=== PATIENT | female | born 1975 | race Caucasian/White ===

== ENCOUNTER 2016-09-21 18:07 | Emergency (ER) | payer OTHER ==
[~2016-09-21] VITALS: Ht 162.6 cm; Wt 120.2 kg
[~2016-09-21 18:07] MED LIST: AMOXICILLIN500 M3 PO; AUGMENTIN 875 M1 TAB PO; CELEXA10 MG PO; CLEOCIN HCL300 M1 PO; CLEOCIN HCL300 MG PO; CLINDAMYCIN HC300 M1 PO; EXCEDRIN EXTRA1 TAB PO; FLEXERIL10 MG PO; FLONASE120 SPRAY/ NASB; GOOD SENSE IBU200 MG PO; IBUPROFEN800 M1 PO; MEDROL 2 MG TABL2 MG PO; MEDROL DOSEPAK1 PAC PO; MOBIC 15MG15 MG PO; NORCO 325 MG-51 TAB PO; NORCO 5-325 TA1 EACH PO; OXYCODONE5 M1 PO; PERCOCET 325 MG1 TA2 PO; PERCOCET 5-3251 EACH PO; ZOFRAN ODT4 MG PO
--- NOTE | 2016-09-21 18:45 | ED GI/GU/ABDOMINAL COMPLAINT ---
History of Present Illness General Chief Complaint: General Adult Stated Complaint: LOW BACK PAIN,DIARRHEA Source: patient, old records Exam Limitations: no limitations Vital Signs & Intake/Output Vital Signs & Intake/Output Vital Signs Date Time Temp Pulse Resp B/P B/P Pulse O2 O2 Flow FiO2 Mean Ox Delivery Rate 09/21 2203 97.4 81 18 129/74 98 Room Air 09/21 1819 97.2 104 18 145/98 98 Room Air ED Intake and Output 09/22 0000 09/21 1200 Intake Total 1000 Output Total Balance 1000 Intake, IV 1000 Patient 265 lb Weight Weight Reported by Patient Measurement Method Allergies Coded Allergies: Penicillins (Severe, HIVES 11/03/15) promethazine (From Phenergan) (Intermediate, ANXIOUS 11/03/15) Reconcile Medications Clonazepam (Unknown Strength) TABLET (Unknown Dose) PO PRN UNKNOWN (Reported) Dextroamphetamine/Amphetamine (Adderall 15 MG Tablet) (Unknown Strength) TABLET (Unknown Dose) UNKNOWN (Reported) Dicyclomine Hydrochloride (Bentyl) 10 MG CAPSULE 1 CAP PO TID PRN abdominal pain Folic Acid 1 MG TABLET 1 TAB PO DAILY SUPPLEMENT (Reported) Hydromorphone HCl (Dilaudid) 2 MG TABLET 1 TAB PO Q6H PRN pain Melatonin (Unknown Strength) TABLET (Unknown Dose) PO QPM SLEEP (Reported) Ondansetron (Zofran Odt) 4 MG TAB.RAPDIS 1 TAB SL TID PRN nausea Topiramate (Unknown Strength) TABLET (Unknown Dose) UNKNOWN (Reported) Venlafaxine HCl (Venlafaxine HCl ER) 150 MG CAP.ER.24H 1 CAP PO DAILY MENTAL HEALTH (Reported) Zolpidem Tartrate 10 MG TABLET 1 TAB PO QPM SLEEP (Reported) Triage Note: PRESENTS TO ED COMPLAINING OF BILATERAL LOWER BACK PAIN THAT STARTED YESTERDAY. ALSO REPORTS DIARRHEA, DENIED UROLOGICAL SYMPTOMS. Triage Nurses Notes Reviewed? yes ? n Is pt currently ? No HPI: Patient is a 34 year old female presents with bilateral lumbar/flank pain, diarrhea and chills. 20 episodes since yesterday. The last episode of diarrhea had some blood present. Pain is severe. Patient took immodium today with no significant improvement. Back pain feels like previous kidney stone pain, but has never had on bilateral sides. Patient denies fevers, vomiting, sick contacts, recent antibiotic use, urinary symptoms. (HEILBRUNN PA,SE) Past History Travel History Traveled to [place] past 21 day No Medical History Any Pertinent Medical History? 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 No (SE HALL) Review of Systems Review of Systems Constitutional: Reports: chills. Denies: fever. EENTM: Reports: no symptoms. Respiratory: Reports: no symptoms. Cardiovascular: Reports: no symptoms. GI: Reports: see HPI, abdominal pain, diarrhea, nausea. Denies: vomiting. Genitourinary: Reports: no symptoms. Musculoskeletal: Reports: back pain. Skin: Reports: no symptoms. Neurological/Psychological: Reports: no symptoms. Hematologic/Endocrine: Reports: no symptoms. Immunologic/Allergic: Reports: no symptoms. (SE HALL) Physical Exam Physical Exam General Appearance: alert, awake, anxious Head: atraumatic, normal appearance Eyes: Bilateral: normal appearance, PERRL, EOMI. Ears, Nose, Throat, Mouth: hearing grossly normal, dry mucous membranes Neck: normal inspection, supple, full range of motion Respiratory: normal breath sounds, chest non-tender, no respiratory distress, lungs clear Cardiovascular: tachycardia (regular rhythm, no murmur) Gastrointestinal: normal bowel sounds, soft, mild diffuse tenderness Back: normal inspection, normal range of motion, no cva tenderness Extremities: normal range of motion Neurologic/Psych: no motor/sensory deficits, awake, alert, oriented x 3, normal gait, normal mood/affect Skin: intact, normal color, warm/dry Core Measures ACS in differential dx? No Severe Sepsis Present: No Septic Shock Present: No (SE HALL) Progress Differential Diagnosis: diverticulitis, gastritis, hepatitis, hernia, ischemic bowel, kidney stone, ovarian cyst, ovarian torsion, pancreatitis, PID/cervicitis , peptic ulcer, perforated viscous, SBO, choledocholithiasis, cholangitis Plan of Care: Orders Procedure Date/time Status Add-on Test (ER Only) 09/21 1952 Active HEPATITIS PANEL 09/21 1904 Active URINE 09/21 1845 Complete URINALYSIS 09/21 1845 Complete LIPASE 09/21 1845 Active COMPREHENSIVE METABOLIC PANEL 09/21 1845 Active CBC WITHOUT DIFFERENTIAL 09/21 1845 Complete Current Medications Sig/Dillan Start time Last Medication Dose Stop Time Status Admin Morphine Sulfate 4 MG ONCE ONE 09/21 1899 CAN (Morphine) 09/21 1900 Laboratory Tests 09/21/161904: Anion Gap 17 H, Estimated GFR > 60, BUN/Creatinine Ratio 10.0, Glucose 99, Calcium 8.7, Total Bilirubin 0.8, AST 217 H, ALT 183 H, Alkaline Phosphatase 213 H, Total Protein 7.5, Albumin 4.0, Globulin 3.5, Albumin/Globulin Ratio 1.1 , Lipase 490 H, CBC w Diff NO MAN DIFF REQ, RBC 5.28, MCV 53.8 L, MCH 15.8 L, RDW 22.7 H, MPV 8.7, Gran % 60.9, Lymphocytes % 27.0, Monocytes % 7.6, Eosinophils % 4.4, Basophils % 0.1, Absolute Granulocytes 4.2, Absolute Lymphocytes 1.9, Absolute Monocytes 0.5, Absolute Eosinophils 0.3, Absolute Basophils 0, PUBS MCHC 29.4 L, Hepatitis A IgM Ab Pending, Hep Bs Antigen Pending, Hep B Core IgM Ab Conf Pending, Hepatitis C Antibody Pending, Urinalysis MOD H, Urine Color CHIP, Urine Clarity CLEAR, Urine pH 6.0, Ur Specific [place] 1.025, Urine Protein 30 H, Urine Ketones TRACE H, Urine Nitrite NEG, Urine Bilirubin NEG@ICTO, Urine Urobilinogen 4.0 H, Ur Leukocyte Esterase TRACE H, Ur Microscopic SEDIMENT EXAMINED, Urine WBC 3-5 H, Ur Epithelial Cells MANY H, Urine Bacteria MOD H, Urine Mucus FEW, Urine Hemoglobin NEG, Urine Glucose NEG, Urine Test NEGATIVE Microbiology 09/21 1845 STOOL: Clostridium difficile Toxin A & B - CAN Cancelled: SPECIMEN NEVER RECEIVED. PATIENT DEPARTED ERH 09/21 1845 STOOL: Stool Culture - CAN Cancelled: SPECIMEN NEVER RECEIVED. PATIENT DEPARTED ERH 2000: No improvement after Toradol. Dilaudid ordered. 09/21/2016 9:40:10 PM: Results of labs and imaging discussed with patient. No episodes of diarrhea while in the emergency department. Patient nontoxic appearing, appears stable for close outpatient follow-up with her primary care doctor. (SE HALL) Diagnostic Imaging: Viewed by Me: CT Scan. Discussed w/RAD: CT Scan. Radiology Impression: PATIENT: SHAKIRA ANDINO PRESENT AGE: 40 PATIENT ACCOUNT NO: [id number] : 77 LOCATION: [facility] ([place]) ORDERING PHYSICIAN: SE PRO SERVICE DATE: 09/21/16 EXAM TYPE: CAT - CT ABD & PELVIS W/O IV CONTRAS EXAMINATION: CT ABDOMEN AND PELVIS WITHOUT CONTRAST CLINICAL INFORMATION: Abdominal pain and flank pain and dysuria COMPARISON: Previous dated 08/12/2013. The other CTs are unavailable at this time. TECHNIQUE: Multidetector volumetric imaging was performed from the superior aspect of the liver through the pubic symphysis. Sagittal and coronal reformatted images were obtained on the technologist's workstation. FINDINGS: Lung bases are grossly clear. Upper abdomen Liver is within normal limits. Mild splenic prominence. Similar to previous. The pancreas is within normal limits. Region of the adrenal glands is unremarkable. Kidneys appear nonhydronephrotic. There is some shotty nodes here in the mesentery and periaortic region. No bulky adenopathy. The bowel pattern appears nonobstructing. Status post cholecystectomy.. The adrenal glands our within normal limits. In the pelvis the appendix is within normal limits. No free fluid in the deep pelvis. IMPRESSION: No acute finding. No evidence of ureteral stone or obstruction. The bowel pattern is nonobstructing. No suspicious fluid collection. DICTATED BY: KATHERINE ZAMORA MD DATE/TIME DICTATED:09/21/162109 EDITOR SOUND:NICKIE DATE/ TIME TRANSCRIBED:09/21/162109 CONFIDENTIAL, DO NOT COPY WITHOUT APPROPRIATE AUTHORIZATION. <Electronically signed in Other Vendor System> SIGNED BY: KATHERINE ZAMORA MD 09/21/162119 Initial ED EKG: none (SE HALL) Departure Departure Time of Disposition: 2137 Disposition: HOME OR SELF CARE Condition: Stable Clinical Impression Primary Impression: Diarrhea Secondary Impressions: Chronic anemia, Elevated LFTs Referrals: UNKNOWN (PCP/Family) Additional Instructions: Follow-up with your primary care doctor within 1 week for further evaluation. Call in the morning for appointment. Clear liquid diet for the next 12-24 hours then slowly advance her diet as tolerated. Start with bananas, rice, applesauce , toast to aid with diarrhea. Return to the emergency department if fevers, unable to say hydrated, or worsening of symptoms. Also you are being provided with a prescription for stool culture and C. difficile testing. If you have diarrhea at home then you should collect the sample and bring it to the outpatient lab for testing. Departure Forms: Customer Survey General Discharge Information Prescriptions: Current Visit Scripts Dicyclomine Hydrochloride (Bentyl) 1 CAP PO TID PRN abdominal pain #12 CAP Hydromorphone HCl (Dilaudid) 1 TAB PO Q6H PRN pain #10 TAB Ondansetron (Zofran Odt) 1 TAB SL TID PRN nausea #10 TAB (SE HALL) PA/[employer] Co-Sign Statement Statement: ED Attending supervision documentation- [] I saw and evaluated the patient. I have also reviewed all the pertinent lab results and diagnostic results. I agree with the findings and the plan of care as documented in the PA's/FIELD [employer]ILL[employer]'s documentation. [X] I have reviewed the ED Record and agree with the PA's/FIELD [employer]'s documentation. [] Additions or exceptions (if any) to the PAs/FIELD ARTILL[employer]'s note and plan are summarized below: [] (DEISI REESE,ILYA Gonsalez)
[2016-09-21 19:23] LABS: ABSOLUTE BASOPHIL COUNT 0 /CUMM (0.0-0.2); ABSOLUTE EOSINOPHIL COUNT 0.3 /CUMM (0.0-0.7); ABSOLUTE GRANULOCYTE CT 4.2 /CUMM (1.4-6.5); ABSOLUTE LYMPH COUNT 1.9 /CUMM (1.2-3.4); ABSOLUTE MONOCYTE COUNT 0.5 /CUMM (0.10-0.60); BASOPHIL % 0.1 % (0.0-2.0); EOSINOPHIL % 4.4 % (0-5); GRANULOCYTE % 60.9 % (42.2-75.2); HEMATOCRIT 28.4 % (37-47); MEAN CORPUSCULAR HGB 15.8 PG (27.0-31.0); MEAN CORPUSCULAR HGB CONC 29.4 G/DL (33.0-37.0); MEAN CORPUSCULAR VOLUME 53.8 FL (81.0-99.0); MEAN PLATELET VOLUME 8.7 FL (7.4-10.4); PLATELET COUNT 315 /CUMM (130-400); RBC DISTRIBUTION WIDTH 22.7 % (11.5-14.5); RED BLOOD CELL CT 5.28 /CUMM (4.20-5.40); WHITE BLOOD CELL COUNT 6.9 /CUMM (4.8-10.8)
[2016-09-21] MEDS ORDERED: VENLAFAXINE HC150 MG PO (19:39)
[2016-09-21] MEDS ORDERED: CLONAZEPAM0.5 M2 PO (19:39)
[2016-09-21] MEDS ORDERED: FOLIC ACID1 M1 PO (19:39)
[2016-09-21] MEDS ORDERED: ZOLPIDEM TARTRA10 M1 PO (19:40)
[2016-09-21] MEDS ORDERED: ADDERALL 15 MG15 MG (19:40)
[2016-09-21] MEDS ORDERED: TOPIRAMATE100 M2 (19:40)
[2016-09-21] MEDS ORDERED: MELATONIN3 M4 PO (19:41)
--- NOTE | 2016-09-21 21:20 | CT SCAN REPORT ---
EXAMINATION: CT ABDOMEN AND PELVIS WITHOUT CONTRAST CLINICAL INFORMATION: Abdominal pain and flank pain and dysuria COMPARISON: Previous dated 08/12/2013. The other CTs are unavailable at this time. TECHNIQUE: Multidetector volumetric imaging was performed from the superior aspect of the liver through the pubic symphysis. Sagittal and coronal reformatted images were obtained on the technologist's workstation. FINDINGS: Lung bases are grossly clear. Upper abdomen Liver is within normal limits. Mild splenic prominence. Similar to previous. The pancreas is within normal limits. Region of the adrenal glands is unremarkable. Kidneys appear nonhydronephrotic. There is some shotty nodes here in the mesentery and periaortic region. No bulky adenopathy. The bowel pattern appears nonobstructing. Status post cholecystectomy.. The adrenal glands our within normal limits. In the pelvis the appendix is within normal limits. No free fluid in the deep pelvis. IMPRESSION: No acute finding. No evidence of ureteral stone or obstruction. The bowel pattern is nonobstructing. No suspicious fluid collection.
[2016-09-21] MEDS ORDERED: BENTYL10 M1 PO (21:42)
[2016-09-21] MEDS ORDERED: DILAUDID2 M1 PO (21:42)
[2016-09-21] MEDS ORDERED: ZOFRAN ODT4 M1 SL (21:42)
[2016-09-21 22:03] VITALS: BP 129/74
== END 2016-09-21 22:05 ==
LOC: ERH 18:07
PROVIDERS: Physician Assistant
DX: R19.7 Diarrhea, unspecified (principal); D64.9 Anemia, unspecified; R79.89 Other specified abnormal findings of blood chemistry
CPT/HCPCS: 74176; 81001; 81025; 87045; 96374; 96375; J1885; J2405

== ENCOUNTER 2018-01-25 21:33 | Observation (INO) | payer OTHER ==
[~2018-01-25] VITALS: Ht 160 cm; Wt 108.9 kg
[~2018-01-25 21:33] MED LIST changes: +ADDERALL 15 MG15 MG; +BENTYL10 M1 PO; +CLONAZEPAM0.5 M2 PO; +DILAUDID2 M1 PO; +FOLIC ACID1 M1 PO; +MELATONIN3 M4 PO; +TOPIRAMATE100 M2; +VENLAFAXINE HC150 MG PO; +ZOFRAN ODT4 M1 SL; +ZOLPIDEM TARTRA10 M1 PO
--- NOTE | 2018-01-25 21:45 | ED UPPER/LOWER EXTREMITY COMPL ---
See Addendum History of Present Illness General Chief Complaint: Lower Extremity Problems Stated Complaint: X3 DAYS LEG SWELLING Source: patient Exam Limitations: no limitations Vital Signs & Intake/Output Vital Signs & Intake/Output Vital Signs Date Time Temp Pulse Resp B/P B/P Pulse O2 O2 Flow FiO2 Mean Ox Delivery Rate 01/26 0023 97.9 99 20 128/77 99 Room Air 01/25 2334 Room Air 01/25 2139 97.8 109 17 121/87 98 Room Air Allergies Coded Allergies: Penicillins (Severe, HIVES 11/03/15) promethazine (From Phenergan) (Intermediate, ANXIOUS 11/03/15) Reconcile Medications Venlafaxine HCl (Venlafaxine HCl ER) 150 MG CAP.ER.24H 1 CAP PO DAILY MENTAL HEALTH (Reported) Zolpidem Tartrate 10 MG TABLET 1 TAB PO QPM SLEEP (Reported) Triage Note: PT TO ED WITH C/O BILATERAL LOWER EXTREMITY PAIN, SWELLING BEGINNING 3 DAYS AGO. +CRAMPING IN BOTH LEGS, RIGHT WORSE THAN LEFT. DENIES ANY HX OF SWELLING IN LEGS. Triage Nurses Notes Reviewed? yes Onset: Gradual Duration: day(s): Timing: recent history Severity: moderate Pain/Injury Location: Bilateral: Leg. Method of Injury: unknown Modifying Factors: Improves With: rest. Associated Symptoms: swelling : No Patient currently breastfeeds: No HPI: 42 yo woman h/o anemia, menorrhagia, presents with lower extremity swelling. "My legs are really swollen... .they hurt.... " Her symptoms began over the past 3 days. She has no fever, redness, dyspnea. She notes that she continues to have heavy periods, lasting 7 days, with clots. She used to follow with a HOME COORDINATOR, but not recently. He is otherwise well. Past History Travel History Traveled to [place] past 21 day No Medical History Any Pertinent Medical History? 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 No Review of Systems Review of Systems Constitutional: Reports: no symptoms. EENTM: Reports: no symptoms. Respiratory: Reports: no symptoms. Cardiovascular: Reports: no symptoms. Gastrointestinal/Abdominal: Reports: no symptoms. Genitourinary: Reports: no symptoms. Musculoskeletal: Reports: no symptoms. Skin: Reports: no symptoms. Neurological/Psychological: Reports: no symptoms. Hematologic/Endocrine: Reports: no symptoms. Immunological: Reports: no symptoms. All Other Systems: Reviewed and Negative Physical Exam Physical Exam General Appearance: well developed/nourished, mild distress Head: atraumatic Eyes: Bilateral: normal appearance. Ears, Nose, Throat: normal pharynx, normal ENT inspection Neck: normal inspection, supple, full range of motion Cardiovascular/Respiratory: normal breath sounds, normal peripheral pulses, regular rate/rhythm, no respiratory distress Back: normal inspection Comments: RECTAL.... guiac negative. bilateral lower extremities.... symmetric lower extremity swelling, no sign of infection, 2+ distal pulses. negative naomie's sign bilaterally. Progress Differential Diagnosis: dependent edema vs other. Plan of Care: Orders Procedure Date/time Status Regular Diet 01/26 B Active Lab Add-on Test 01/26 033 Active Lab Add-on Test 01/26 033 Active Pathway - chart 01/26 0307 Active House Staff 01/26 0307 Active Code Status 01/26 0307 Active Patient Data 01/26 0241 Active US-EXT BILAT VENOUS DOPPLER 01/26 0239 Active Saline Lock 01/[address] in observation 01/26 0237 Active Misc Message 01/26 0237 Active ED Holding Orders 01/26 0237 Active Vital Signs 01/26 0237 Active EKG 01/26 0237 Active Code Status 01/26 0237 Complete VTE Mechanical Prophylaxis 01/26 UNK Active Hemoccult 01/26 UNK Active TYPE & SCREEN (NOT X-MATCH) 01/25 2312 Active LEUKOCYTE POOR (PACKED CELLS) 01/26 2312 Active TOTAL IRON BINDING CAPACITY 01/26 2156 Active RETICULOCYTE COUNT 01/25 215 Active FERRITIN 01/25 215 Active SERUM IRON 01/26 2156 Active B-TYPE NATRIURETIC PEP (BNP) 01/26 2156 Active COMPREHENSIVE METABOLIC PANEL 01/25 2145 Active CBC WITHOUT DIFFERENTIAL 01/25 2145 Active Current Medications Sig/Dillan Start time Last Medication Dose Stop Time Status Admin Zolpidem Tartrate 10 MG QPM 01/26 2100 UNVr (Ambien) Venlafaxine HCl 150 MG DAILY 01/26 09 UNVr (Effexor) Gabapentin 300 MG ONCE ONE 01/26 345 UNVr (Neurontin) 01/26 346 Tramadol HCl 50 MG ONCE ONE 01/26 345 UNVr (Ultram) 01/26 346 Acetaminophen 650 MG Q6P PRN 01/26 315 AC (Tylenol) Oxycodone/ 1 TAB Q6P PRN 01/26 315 AC Acetaminophen (Percocet) Laboratory Tests 01/25/182155: Anion Gap 10, Estimated GFR > 60, BUN/Creatinine Ratio 11.4, Glucose 105 H, Calcium 9.1, Iron Pending, TIBC Pending, Ferritin Pending, Total Bilirubin 0.2, AST 26, ALT 30, Alkaline Phosphatase 104, [id number] Pept Pending, Total Protein 6.8, Albumin 3.7, Globulin 3.1, Albumin/Globulin Ratio 1.2, CBC w Diff NO MAN DIFF REQ, RBC 4.23, MCV 54.2 L, MCH 15.8 L, MCHC 29.0 L, RDW 21.8 H, MPV 8.3, Gran % 60.5, Lymphocytes % 29.1, Monocytes % 7.3, Eosinophils % 3.0, Basophils % 0.1, Absolute Granulocytes 5.1, Absolute Lymphocytes 2.4, Absolute Monocytes 0.6, Absolute Eosinophils 0.3, Absolute Basophils 0, Retic Count Pending Initial ED EKG: pending Departure Departure Disposition: HOME OR SELF CARE Condition: Stable Clinical Impression Primary Impression: Anemia Secondary Impressions: Dependent edema, Menorrhagia Referrals: Unknown (PCP/Family) Departure Forms: Customer Survey General Discharge Information Comments 01/25/18, 23:00... upon review of her labs, hgb 6.7, drifting lower from her baseline. she reports heavy periods with clots, no longer has salad chef care. she has been unable to tolerate oral iron. given her drift and recurrent menorrhagia, will transfuse.... pt referred for salad chef follow up. 01/26/18, 2:20am... discussed with lab... type and screen revealed one weak positive cell, unable to be identified. Blood tx needs to be reviewed by day team lab to determine safety of blood transfusion. Observation Note Spoke With: Nacho Chi MD Patient In: Non-ED OBS Care Area Rationale for Observation: My rational for observation is as follows . pt with antibodies on type and screen, necessitating further clarification from lab regarding blood transfusion, possibly sending sample to outside lab. Pt merits blood transfusion due to hgb<7.0, likely etiology are her heavy periods and intolerance to iron. (guiac negative) Pt also with lower extremity edema, subacute/chronic, meriting u/s and lasix, further evaluation
[2018-01-25 22:17] LABS: ABSOLUTE BASOPHIL COUNT 0 /CUMM (0.0-0.2); ABSOLUTE MONOCYTE COUNT 0.6 /CUMM (0.10-0.60); RBC DISTRIBUTION WIDTH 21.8 % (11.5-14.5)
[2018-01-25 22:21] LABS: ABSOLUTE EOSINOPHIL COUNT 0.3 /CUMM (0.0-0.7); ABSOLUTE GRANULOCYTE CT 5.1 /CUMM (1.4-6.5); ABSOLUTE LYMPH COUNT 2.4 /CUMM (1.2-3.4); BASOPHIL % 0.1 % (0.0-2.0); GRANULOCYTE % 60.5 % (42.2-75.2); HEMATOCRIT 22.9 % (37-47); MEAN CORPUSCULAR HGB 15.8 PG (27.0-31.0); MEAN PLATELET VOLUME 8.3 FL (7.4-10.4); PLATELET COUNT 361 /CUMM (130-400); RED BLOOD CELL CT 4.23 /CUMM (4.20-5.40); WHITE BLOOD CELL COUNT 8.4 /CUMM (4.8-10.8)
[2018-01-25 22:51] LABS: MEAN CORPUSCULAR VOLUME 54.2 FL (81.0-99.0)
[2018-01-26] MEDS ORDERED: LASIX20 M1 PO (00:35)
--- NOTE | 2018-01-26 02:57 | History & Physical ---
Sarah Ji 01/26/18 0256: General Information and HPI MD Statement: I have seen and personally examined SHAKIRA ANDINO and documented this H&P. The patient is a 42 year old F who presented with a patient stated chief complaint of [LEG SWELLING]. Source of Information: patient Exam Limitations: no limitations History of Present Illness: 42 YO F with a PMHx significant for obesity, chronic low back pain, chronic anemia (status post 1 blood transfusion many years ago) nephrolithiasis (status post stent), hyperparathyroidism (status post parathyroidectomy ), depression, PTSD, came to the ED for the evaluation of b/l lower extremity swelling X 3days. The patient reports that one week ago she started having right-sided buttock pain which she attributes to a lot of walking. 2 days ago her ankle got swollen and was associated with sharp shooting pain. The pain got worse and involve both lower limbs. The pain was 10 x 10 intensity she also reports intermittent cramping in both legs. She took [id number] ibuprofen and Tylenol which did not help with the pain. Standing makes the pain worse. The patient was not able to see for the past 2 days because of the pain. There are no previous episodes of such pain. Patient reports that the pain is now 7 x 10 intensity. Patient does have a history of chronic low back pain, but does not complain of back pain at this time Patient denies chest pain, shortness of breath, fever, chills, recent falls, recent trauma, worsening back pain, abdominal pain, changes in bowel or urinary habits, sick contacts, recent travels. Allergies/Medications Allergies: Coded Allergies: Penicillins (Severe, HIVES 11/03/15) promethazine (From Phenergan) (Intermediate, ANXIOUS 11/03/15) Observation Initial Note - I have personally examined SHAKIRA ANDINO on 01/26/18 at 0401. The disposition of SHAKIRA ANDINO is uncertain at this time and before a determination can be made, she requires a period of observation for the following reasons [chronic anemia, b/l lower extremity swelling] Past History Travel History Traveled to [place] past 21 day No Medical History Blood Transfusion Hx: Yes Type of Reaction: Anxiety Neurological: seizure EENT: NONE Cardiovascular: NONE Respiratory: NONE Gastrointestinal: NONE Hepatic: cholelithiasis Renal: nephrolithiasis Musculoskeletal: disk herniation Psychiatric: PTSD Endocrine: hyperparathyroidism, PARATHYROID SURG THYROID REMOVAL Blood Disorders: anemia Cancer(s): NONE GANG WORKER/Reproductive: NONE History of MRSA: No History of VRE: No History of CDIFF: No Surgical History Surgical History: cholecystectomy, Past Family/Social History Family History Relations & Conditions if any Relation not specified for: Diabetes mellitus in father FHx: lung cancer Psychosocial History Where do you live? Home Who Do You Live With? spouse, child Services at Home: None Smoking Status: Current Everyday Smoker (1 ppd FOR 20 YEARS) ETOH Use: denies use Illicit Drug Use: denies illicit drug use Review of Systems Review of Systems Constitutional: Reports: see HPI. EENTM: Reports: no symptoms. Cardiovascular: Reports: no symptoms. Respiratory: Reports: no symptoms. GI: Reports: no symptoms. Genitourinary: Reports: no symptoms. Musculoskeletal: Reports: see HPI. Skin: Reports: no symptoms. Neurological/Psychological: Reports: no symptoms. Hematologic/Endocrine: Reports: no symptoms. Immunologic/Allergic: Reports: no symptoms. All Other Systems: Reviewed and Negative Exam & Diagnostic Data Last 24 Hrs of Vital Signs/I&O Vital Signs Date Time Temp Pulse Resp B/P B/P Pulse O2 O2 Flow FiO2 Mean Ox Delivery Rate 01/26 0023 97.9 99 20 128/77 99 Room Air 01/25 2334 Room Air 01/25 2139 97.8 109 17 121/87 98 Room Air Physical Exam General Appearance Alert, Oriented X3, Cooperative, Mild Distress Skin No Rashes, No Breakdown, No Significant Lesion Skin Temp/Moisture Exam: Cool/Dry Sepsis Skin Exam (color): Normal for Ethnicity HEENT Atraumatic, PERRLA, EOMI, Mucous Membr. moist/pink Neck Supple, No JVD, No thryomegaly, +2 Carotid Pulse wo Bruit, No LAD Cardiovascular Regular Rate, Normal S1, Normal S2, FLOW MURMUR Lungs Clear to Auscultation, Normal Air Movement Abdomen Normal Bowel Sounds, Soft, No Tenderness, No Hepatospenomegaly, No Masses Neurological Normal Speech, Strength at 5/5 X4 Ext, Normal Tone, Sensation Intact, Cranial Nerves 3-12 NL Extremities B/L LOWER LIMBS TENDER, PITTING EDEMA.NO REDNESS, back: tenderness in spinal and paraspinal regions Vascular Normal Pulses, Pulses Symmetrical Assessment/Plan Assessment: 42 YO F with a PMHx significant for obesity, chronic low back pain, chronic anemia (status post 1 blood transfusion many years ago) nephrolithiasis (status post stent), hyperparathyroidism (status post parathyroidectomy ), depression, PTSD, came to the ED for the evaluation of b/l lower extremity swelling X 3days. Vitals in the ED: Afebrile, heart rate 99, respiratory rate 20, blood pressure 128/77, 99% room air Problems: 1. chronic microcytic anemia 2.bilateral lower extremity swelling and pain 3.chronic low back pain 4.depression/PTSD Assessment and plan: 1.chronic microcytic anemia: The patient has a significant flow murmur on the cardiovascular examination. Her CBCs showed a hemoglobin of 6.7, hematocrit 22.9. MCV 54.2, MCH 15.8, MCHC 29, RDW 21.8, reticulocyte count 1.47. Suggestive of iron deficiency. On further interrogation the patient says that she has a history of menorrhagia /heavy bleeding. The patient says that almost all her life she has had very heavy menstrual bleeding. The patient has a period every 30 days, which lasts for 7 days. She changes her heavy pad every 2 hours. She was diagnosed with anemia when she was being worked up for placing a stent for nephrolithiasis, and had received a blood transfusion. Most probably it was less than 5 years ago. She does not report any reaction to blood transfusion but does report feeling anxious. She said last saw her primary care physician 1.5 years ago and has an appointment scheduled with an LOAN ADVISER in January for the evaluation of her heavy bleeding. -Patient replaced as observation on general floor -Check guaiac Hemoccult all stools -Monitor H&H -Type, crossmatch and screen blood: Her type and screen was positive for an antibody for which she required complete workup. -Blood transfusion: After completion of type and screen workup -Iron studies, including TIBC, serum iron, transferrin saturation, ferritin 2. Lower extremity swelling and pain: The could be multiple reasons for this lower extremity swelling. So we will require further evaluation -IV furosemide 20 mg was given once in the emergency department -Check proBNP -Elevate both legs -Pain controlled by following pain pathway: Including Oxycodone, continue gabapentin, Percocet, tramadol -Urinalysis to look for protein loss 3. Chronic low back pain: Patient has a chronic history of low back pain. It has been stable lately and patient does not complain of any back pain at this time. 4.depression/PTSD: Stable. We will continue venlafaxine, zolpidem DVT prophylaxis Alps Diet regular CODE STATUS full code As Ranked By This Provider Problem List: 1. Chronic anemia 2. Back pain 3. Menorrhagia 4. Lower extremity edema Core Measures/Misc (02/13) Acute Coronary Syndrome ACS Diagnosis: No Congestive Heart Failure Congestive Heart Failure Diagnosis No Cerebrovascular Accident CVA/TIA Diagnosis: No VTE (View Protocol) VTE Risk Factors Obesity No Mechanical VTE Prophylaxis d/t N/A MechProphylax Ordered No VTE Pharm Prophylaxis d/t NA PharmProphylax ordered Sepsis (View protocol) Sepsis Present: No If YES complete Sepsis Event Note If YES complete Sepsis Event Note Claudia Ortiz MD 01/26/18 0308: General Information and HPI Allergies/Medications Home Med list Venlafaxine HCl (Venlafaxine HCl ER) 150 MG CAP.ER.24H 1 CAP PO DAILY MENTAL HEALTH (Reported) Zolpidem Tartrate 10 MG TABLET 1 TAB PO QPM SLEEP (Reported) Core Measures/Misc (02/13) Sepsis (View protocol) If YES complete Sepsis Event Note If YES complete Sepsis Event Note Resident Review Statement Resident Statement: examined this patient, discussed with internet marketing specialist, reviewed EMR data (avail) Other Findings: 42 yo F with PMH of anemia, hyperparathyroidism s/p parathyroidectomy, nephrolithiasis, PTSD presented to the ED with complains of lower extremity edema and pain for the past 2 days. The patient states that her symptoms initially started a week ago when she started having pain in her right buttock/ thigh pain after excessive walking. She took some tylenol/ibuprofen which relieved her symptoms. However, two days ago she developed ankle pain along with swelling of feet and legs. She describes her pain as sharp/shooting, non radiating, aggravated with standing, 10/10 in severity. She tried some pain killers for pain but it did not improve her symptoms. Her leg edema had been also been getting progressively worse so she decided to come to ED for further evaluation. She states she has never had lower extremity edema before. In the ED her labs showed profound anemia with H&H of 6.7/22.9 with MCV 22.9 and RDW 21.8 suggestive of iron deficiency. On further questioning the patient states that she has a history of menorrhagia with her periods lasting 7 days each month with heavy bleeding and clots. She denies any chest pain or exertional SOB. She has received a transfusion in the past when she was undergoing a ureteric stent placement and she was found to be anemic. She denies any transfusion reaction at the time. Her Type and Screen was positive for an antibody which requires further work-up until it can be determined. Her blood transfusion is thus on hold until morning. ROS: significant for headaches, back pain. General Appearance: well developed/nourished, mild distress Head: atraumatic, normal appearance Eyes: bilateral normal appearance, PERRLA Ears, Nose, Throat: normal hearing and speech Respiratory: normal breath sounds, chest non-tender, no respiratory distress Cardiovascular: regular rate/rhythm, normal S1, S2 with 2/6 EZRA Gastrointestinal: soft, non-tender Back: tenderness to palpation in lower thoracic/lumbar region with paraspinal tenderness on right. Extremities: bilateral pitting edema of lower extremities with tenderness. Neurologic/Psych: awake, alert, oriented x 3, normal mood/affect. decreased sensation on left leg. decreased strength in lower extremities (confounded secondary to pain with limb movement) Skin: intact, normal color, warm/dry Assessment: 1. Severe Anemia likely due to iron deficiency 2. Lower extremity edema 3. Chronic back pain Plan: * Admit patient to general medicine in obs * Check iron studies and reticulocyte count * Guiac all stools * Will transfuse once type and screen is completed * Pain control with tylenol/tramdol/percocet. Will give a trial of gabapentin as her pain is suspicious for neuropathic pain. * Check proBNP * She received a small dose of PO lasix 20mg in ER. Would observe. The lower extremity will need further evaluation. * Check UA for proteinuria * Diet: Regular * DVT Prophylaxis: ALPS * Code: Full Code Nacho Chi MD 01/26/18 0344: Core Measures/Misc (02/13) Sepsis (View protocol) If YES complete Sepsis Event Note If YES complete Sepsis Event Note Attending MD Review Statement Attending Statement Attending MD Statement: examined this patient, discuss w/resident/PA/CONE WORKER, agreed w/resident/PA/CONE WORKER, reviewed EMR data (avail) Attending Assessment/Plan: 42F PMH hypothyroidism, primary hyperparathyroidism presents with complaints of bilateral LE edema. Has been chronic, worsening over weeks, with pitting edema to thighs on bilateral legs consistent with venous stasis. She denies orthopnea, dyspnea, chest pain, palpitations, abdominal pain. Found incidentally to have Hgb 6.7. Has a history of anemia requiring transfusion multiple times in the past secondary to menorrhagia. Has GANG WORKER referral but has not yet followed up. ER plan was to transfuse and discharge with outpatient follow up, however patient has multiple auto-antibodies that may cause transfusion reaction, and further blood bank testing is required. Patient will be placed in genmed obs, coordination with [place] and transfusion in the morning, start Lasix PO, echocardiogram, outpatient vascular and GANG WORKER follow up.
--- NOTE | 2018-01-26 07:40 | Patient Discharge Instructions ---
Discharge Instructions General Discharge Information Special Instructions: - Please follow up with your OBGYN doctor within 1-2 weeks of discharge. - Please follow up with your primary care physician within 1-2 weeks of discharge. Inform your primary care physician of this admission to [facility]. - Continue your current medications per discharge instructions. - Please watch for these problems: Fever, Chills, Nausea, Vomiting, Shortness of Breath, Productive Cough, Chest Pain/Discomfort, Abdominal Pain, Active Bleeding or Bloody urine/stool. Diet Continue normal diet: Yes Activity Full Activity/No Limits: Yes Acute Coronary Syndrome Inclusion Criteria At DC or during hospital stay patient has or had the following: ACS DIAGNOSIS No Discharge Core Measures Meds if any: Prescribed or Continued at Discharge Meds if any: NOT Prescribed or Continued at Discharge Congestive Heart Failure Inclusion Criteria At DC or during hospital stay patient has or had the following: CHF DIAGNOSIS No Discharge Core Measures Meds if any: Prescribed or Continued at Discharge Meds if any: NOT Prescribed or Continued at Discharge Cerebrovascular accident Inclusion Criteria At DC or during hospital stay patient has or had the following: CVA/TIA Diagnosis No Discharge Core Measures Meds if any: Prescribed or Continued at Discharge Meds if any: NOT Prescribed or Continued at Discharge Venous thromboembolism Inclusion Criteria VTE Diagnosis No VTE Type NONE VTE Confirmed by (Test) NONE Discharge Core Measures - Per Current guidelines, there needs to be overlap - treatment for the first 5 days of Warfarin therapy. - If discharged on Warfarin prior to 5 days of - overlap therapy, the patient will need to be - assessed for post discharge needs including - *Post discharge parental anticoagulation - *Warfarin and/or parental anticoagulation education - *Follow up date to check INR post discharge At least 5 days overlap therapy as Inpatient No Meds if any: Prescribed or Continued at Discharge Note: Overlap Therapy is Warfarin and Anticoagulant Meds if any: NOT Prescribed or Continued at Discharge
--- NOTE | 2018-01-26 08:01 | PN- Housestaff ---
Subjective Follow-up For: Chronic microcytic hypochromic anemia bilateral lower extremity edema Subjective: Patient seen and examined at bedside. He was complaining pain bilateral lower extremity. He was complaining dizziness, tiredness. He denies fever, chills, chest pain, abdominal pain, palpitation, burning micturition, diarrhea, constipation Review of Systems Constitutional: Reports: see HPI. Objective Last 24 Hrs of Vital Signs/I&O Vital Signs Date Time Temp Pulse Resp B/P B/P Pulse O2 O2 Flow FiO2 Mean Ox Delivery Rate 01/26 1435 98.3 78 20 116/70 98 Room Air 01/26 1227 98.5 84 20 114/64 100 Room Air 01/26 1200 98.7 80 20 126/60 97 Room Air 01/26 1149 98.7 80 20 127/57 97 Room Air 01/26 1015 97.0 86 20 125/76 96 Room Air 01/26 0915 97.0 88 20 126/60 97 Room Air 01/26 0900 96.9 86 20 130/62 97 Room Air 01/26 0834 97.0 94 20 135/62 99 Room Air 01/26 0830 97.0 94 20 135/62 99 Room Air 01/26 0358 98.6 87 20 136/63 99 Room Air 01/26 0023 97.9 99 20 128/77 99 Room Air 01/25 2334 Room Air 01/25 2139 97.8 109 17 121/87 98 Room Air Intake & Output 01/26 1600 01/26 0800 01/26 0000 Intake Total 360 Output Total 250 Balance 110 Intake, IV 0 Intake, Oral 360 Number 0 Bowel Movements Output, Urine 250 Patient 240 lb 240 lb Weight Weight Reported by Patient Measurement Method Physical Exam General Appearance: Alert, Oriented X3, Cooperative, No Acute Distress HEENT: Atraumatic, PERRLA, EOMI, Mucous Membr. moist/pink Neck: Supple, No JVD, No thryomegaly, +2 Carotid Pulse wo Bruit, No LAD Lymphatic: Axillary nl, Cervical nl Cardiovascular: Regular Rate, Normal S1, Normal S2 Lungs: Clear to Auscultation, Normal Air Movement Abdomen: Normal Bowel Sounds, Soft, No Tenderness Neurological: Normal Gait, Normal Speech, Strength at 5/5 X4 Ext, Normal Tone, Sensation Intact, Cranial Nerves 3-12 NL, Reflexes 2+ Extremities: No Clubbing, No Cyanosis, No Edema, Normal Pulses, No Tenderness/ Swelling Assessment/Plan Assessment: 42-year-old female with past medical history of anemia, hyperparathyroidism status post parathyroidectomy, menorrhagia, Nephrolithiasis that is post stone removal 5 years back, presented to emergency department complaining of lower extremity edema, weakness, tiredness for the last 2 days. At the time of presentation to emergency department the vitals and labs are following. Vitals: Pulse 109, temperature 97.8, respiratory rate 17, BP 121 /81 Pertinent labs: WBC 8.4, RBC 4.23, Hgb 6.7, HCT 22.9, MCV 54.2, RDW 21.8. Platelet 361, Bun 18, creatinine 0.7, GFR 60, bunions/creatinine ratio 11.4, glucose 105, calcium 9, iron 16, TIBC 4.4. Transvaginal ultrasound: IMPRESSION: 1. The uterus appears normal. The endometrial stripe has normal thickness. No fibroids are demonstrated. 2. The ovaries are not visualized, likely technical due to body habitus and adjacent bowel. Ultrasonography of the lower extremity: No DVT Echo: Awaited Problems list: *Hypochromic microcytic iron deficiency anemia * Lower extremity edema *Chronic back pain *High cardiac output failure due to anemia Plan: *Hypochromic microcytic iron deficiency anemia: *Low hemoglobin, high TIBC, low ferritin, microcytosis, hypochromia and history of menorrhagia *Tiredness, weakness, bilateral pedal edema due to high cardiac output failure *Will transfuse 2 units of blood *Will start iron supplement *Will consult her for follow-up with the GYNy/OBS as outpatient basis *Transvaginal ultrasound done to rule out fibroid, *Ultrasonography of the bilateral lower extremity done to rule out DVT *We will start her on iron supplement, multivitamin, encourage oral intake, *Keep in general medical [place] for observe *High cardiac output failure due to anemia/lower extremity edema: -Patient bilateral lower extremity edema could be due to high cardiac output failure -There is fluid overload because she having pitting edema -We will do echocardiogram of the heart -Ultrasound of bilateral lower extremity rule out DVT -Renal function test are normal -Urinalysis awaited *Will follow all reports *Will continue on Lasix *Chronic back pain: -She also complaining of chronic back pain -Pain medication will start -Full code -GI DVT prophylaxis -Can be discharged tomorrow after above investigation make sure that there is no need of admission. . Problem List: 1. Weakness 2. Chronic anemia 3. Menorrhagia 4. Lower extremity edema Pain Ratin Pain Location: Bilateral lower extremities Pain Goal: Remain pain free Pain Plan: Pain management pathway Tomorrow's Labs & Rationales: Cbc
[2018-01-26 08:30] VITALS: BP 135/62
--- NOTE | 2018-01-26 08:46 | ULTRASOUND REPORT ---
EXAMINATION: US TRIPLEX LOWER EXTREMITIES, BILATERAL CLINICAL INFORMATION: Swelling of lower extremities and anemia. COMPARISON: Ultrasound study 07/26/2013. TECHNIQUE: Color-flow triplex imaging with spectral analysis and compression Doppler was performed on the bilateral lower extremities. FINDINGS: Respiratory variation, normal compression and augmented flow are noted throughout the bilateral lower extremities. The visualized common femoral veins, superficial femoral veins, profunda femoral veins and popliteal veins show no evidence of deep venous thrombosis bilaterally. Evaluation of the calfs is slightly suboptimal, due to overlying edema, but color flow is demonstrated in the calf veins bilaterally. There are no focal fluid collections. IMPRESSION: 1. Normal triplex scan without evidence of deep venous thrombosis involving the bilateral lower extremities. Mildly suboptimal evaluation of the calf veins. 2. There are no focal fluid collections.
[2018-01-26 12:27] VITALS: BP 114/64
[2018-01-26 14:35] VITALS: BP 116/70
--- NOTE | 2018-01-26 16:29 | ULTRASOUND REPORT ---
EXAMINATION: US PELVIS COMPLETE CLINICAL INFORMATION: Admit for anemia. Possible menorrhagia. COMPARISON: CT scan of the abdomen and pelvis 04/24/2017. TECHNIQUE: Real-time grayscale and Doppler ultrasound of the pelvis was performed using transabdominal and transvaginal approaches. Evaluation is extremely limited due to body habitus and adjacent bowel. FINDINGS: The uterus is of normal size and echogenicity measuring 9.2 x 5.3 x 6.2 cm. The volume of the uterus is 156.3 mL. The uterus is anteverted. A regular homogeneous endometrial echo is identified measuring 0 point cm. The cervical length is 3.1 cm. The ovaries are not seen on either side. There is no pelvic free fluid. IMPRESSION: 1. The uterus appears normal. The endometrial stripe has normal thickness. No fibroids are demonstrated. 2. The ovaries are not visualized, likely technical due to body habitus and adjacent bowel.
[2018-01-26 19:23] LABS: ABSOLUTE BASOPHIL COUNT 0 /CUMM (0.0-0.2); ABSOLUTE EOSINOPHIL COUNT 0.2 /CUMM (0.0-0.7); ABSOLUTE MONOCYTE COUNT 0.5 /CUMM (0.10-0.60); BASOPHIL % 0.1 % (0.0-2.0)
[2018-01-26 19:32] LABS: ABSOLUTE GRANULOCYTE CT 5.8 /CUMM (1.4-6.5); ABSOLUTE LYMPH COUNT 1.7 /CUMM (1.2-3.4); EOSINOPHIL % 2.7 % (0-5); GRANULOCYTE % 70.3 % (42.2-75.2); HEMATOCRIT 24.2 % (37-47); MEAN CORPUSCULAR HGB 17.1 PG (27.0-31.0); MEAN CORPUSCULAR HGB CONC 30.2 G/DL (33.0-37.0); MEAN PLATELET VOLUME 8.3 FL (7.4-10.4); PLATELET COUNT 322 /CUMM (130-400); RBC DISTRIBUTION WIDTH 26.8 % (11.5-14.5); RED BLOOD CELL CT 4.28 /CUMM (4.20-5.40); WHITE BLOOD CELL COUNT 8.3 /CUMM (4.8-10.8)
[2018-01-26 20:06] LABS: MEAN CORPUSCULAR VOLUME 56.5 FL (81.0-99.0)
[2018-01-26 21:01] VITALS: BP 148/100
[2018-01-27 06:27] VITALS: BP 123/65
--- NOTE | 2018-01-27 06:51 | PN- Housestaff ---
Spencer Ji 01/27/18 0649: Subjective Follow-up For: Hypochromic microcytic anemia, bilateral lower extremity painful swelling Subjective: Patient seen and examined at bedside. She was complaining painful swelling in bilateral lower extremity. She denies fever, chills, chest pain, palpitation, abdominal pain, diarrhea, constipation, burning micturition. Review of Systems Constitutional: Reports: see HPI. Objective Last 24 Hrs of Vital Signs/I&O Vital Signs Date Time Temp Pulse Resp B/P B/P Pulse O2 O2 Flow FiO2 Mean Ox Delivery Rate 01/27 0627 98.1 82 20 123/65 99 Room Air 01/26 2101 98.1 88 18 148/100 96 01/26 1435 98.3 78 20 116/70 98 Room Air 01/26 1227 98.5 84 20 114/64 100 Room Air 01/26 1200 98.7 80 20 126/60 97 Room Air 01/26 1149 98.7 80 20 127/57 97 Room Air 01/26 1015 97.0 86 20 125/76 96 Room Air 01/26 0915 97.0 88 20 126/60 97 Room Air 01/26 0900 96.9 86 20 130/62 97 Room Air 01/26 0834 97.0 94 20 135/62 99 Room Air 01/26 0830 97.0 94 20 135/62 99 Room Air Intake & Output 01/27 0800 01/27 0000 01/26 1600 Intake Total 240 410 360 Output Total 400 325 250 Balance -160 85 110 Intake, IV 10 0 Intake, Oral 240 400 360 Number 0 0 Bowel Movements Output, Urine 400 325 250 Patient 240 lb Weight Weight Reported by Patient Measurement Method Physical Exam General Appearance: Alert, Oriented X3, Cooperative, No Acute Distress Skin: Pallor Lymphatic: Axillary nl, Cervical nl Cardiovascular: Regular Rate, Normal S1, Normal S2 Lungs: Clear to Auscultation, Normal Air Movement Abdomen: Normal Bowel Sounds, Soft, No Tenderness, No Hepatospenomegaly, No Masses Neurological: Normal Gait, Normal Speech, Strength at 5/5 X4 Ext, Normal Tone, Sensation Intact, Cranial Nerves 3-12 NL, Reflexes 2+ Assessment/Plan Assessment: 42-year-old female positive first degree family history of cancer, past medical history of anemia, hyperparathyroidism status post parathyroidectomy, menorrhagia, Nephrolithiasis that is post stone removal 5 years back, presented to emergency department complaining of lower extremity edema, weakness, tiredness for the last 2 days. At the time of presentation to emergency department the vitals and labs are following. Vitals: Pulse 109, temperature 97.8, respiratory rate 17, BP 121 /81 Pertinent labs: WBC 8.4, RBC 4.23, Hgb 6.7, HCT 22.9, MCV 54.2, RDW 21.8. Platelet 361, Bun 18, creatinine 0.7, GFR 60, bunions/creatinine ratio 11.4, glucose 105, calcium 9, iron 16, TIBC 4.4. Transvaginal ultrasound: IMPRESSION: 1. The uterus appears normal. The endometrial stripe has normal thickness. No fibroids are demonstrated. 2. The ovaries are not visualized, likely technical due to body habitus and adjacent bowel. Ultrasonography of the lower extremity: No DVT Echo: Awaited Problems list: *Hypochromic microcytic iron deficiency anemia * Lower extremity edema *Chronic back pain *High cardiac output failure due to anemia Plan: *Hypochromic microcytic iron deficiency anemia: *Her hemoglobin level improved from 6.7-7.3. *Will transfuse another unit of blood now *Low hemoglobin, high TIBC, low ferritin, microcytosis, hypochromia and history of menorrhagia *Tiredness, weakness, bilateral pedal edema due to high cardiac output failure * iron supplement started *Transvaginal ultrasound done to rule out fibroid, *Ultrasonography of the bilateral lower extremity done to rule out DVT *We will start her on iron supplement, multivitamin, encourage oral intake, *Keep in [facility] for observe *High cardiac output failure due to anemia/lower extremity edema: -Patient bilateral lower extremity edema could be due to high cardiac output failure -There is fluid overload because she having pitting edema -We will do echocardiogram of the heart -Ultrasound of bilateral lower extremity rule out DVT -Renal function test are normal -Urinalysis awaited *Will follow all reports *Will continue on Lasix *Chronic back pain: -She also complaining of chronic back pain -According to patient she has history of sciatica but it subsided -Pain medication will start -Full code -GI DVT prophylaxis -Anticipated discharge today -Patient counseled to follow-up with housecalls nurse on outpatient basis -Patient having positive family history of cancer -Patient counseled to follow-up with the GYNy/OBS as outpatient basis -Patient counseled for further necessary workup Problem List: 1. Menorrhagia 2. Lower extremity edema 3. Anemia Pain Ratin Pain Location: Bilateral lower extremity Pain Goal: Remain pain free Pain Plan: Pain management pathway Tomorrow's Labs & Rationales: cbc Lee Barone 01/27/18 1004: Attending MD Review Statement Attending Statement Attending MD Statement: examined this patient, discuss w/resident/PA/COMMUNITY PROGRAM ASSISTANT, agreed w/resident/PA/COMMUNITY PROGRAM ASSISTANT, discussed with family, reviewed EMR data (avail), discussed with nursing, discussed with case mgmt, reviewed images, amended to note Attending Assessment/Plan: 42 o/f with family histroy of cancer in grandmother, mother, brother with chronic hypochronic microcytic anemia with MCV 56 and RDW 21. Patient placed in observation status here for fatigue and generalised weakness with bilateral lower extremity swelling likely from worsening anemia rule out blood loss anemia with some menorrhagia reported and Pelvis USG negative with normal endometrial thickening. Obtain Gu[place] test and if it is negative consider hematology referral as outpatient after she completes her 2 unit of transfusions. Overall she has felt imrpoved s/p 1 unit of blood transfusion. Her iron level and ferritin is low on presentation with normal TIBC. She remains hemodynamically stable. Tylenol for back pain likely musculoskeletal. Also follow up with PCP at discharge in 1 week.
[2018-01-27 08:38] LABS: ABSOLUTE BASOPHIL COUNT 0 /CUMM (0.0-0.2); ABSOLUTE EOSINOPHIL COUNT 0.3 /CUMM (0.0-0.7); ABSOLUTE GRANULOCYTE CT 3.9 /CUMM (1.4-6.5); ABSOLUTE LYMPH COUNT 2.4 /CUMM (1.2-3.4); ABSOLUTE MONOCYTE COUNT 0.3 /CUMM (0.10-0.60); BASOPHIL % 0 % (0.0-2.0); EOSINOPHIL % 3.7 % (0-5); HEMATOCRIT 23.8 % (37-47); MEAN CORPUSCULAR HGB 17.4 PG (27.0-31.0); MEAN CORPUSCULAR HGB CONC 30.7 G/DL (33.0-37.0); MEAN CORPUSCULAR VOLUME 56.7 FL (81.0-99.0); MEAN PLATELET VOLUME 8.1 FL (7.4-10.4); PLATELET COUNT 335 /CUMM (130-400); RBC DISTRIBUTION WIDTH 25.2 % (11.5-14.5); RED BLOOD CELL CT 4.19 /CUMM (4.20-5.40); WHITE BLOOD CELL COUNT 6.9 /CUMM (4.8-10.8)
[2018-01-27] MEDS ORDERED: VITAMIN D250000 UNIT PO ×2 (09:21→15:08)
[2018-01-27] MEDS ORDERED: IRON325 M3 PO ×2 (09:21→15:07)
[2018-01-27 14:25] VITALS: BP 128/68
--- NOTE | 2018-01-27 18:07 | ECHOCARDIOGRAM REPORT ---
SHAKIRA ANDINO Age: 42 : 1975 Gender: F Exam Date: 01/26/2018 09:31 Exam Location: ER Ht (in): 63 Wt (lb): 240 BSA: 2.26 BP: 136 / 63 Ordering Physician: Sarah Ji MD Referring Physician: Sarah Ji MD Technologist: Moises Albright MARYAM Room Number: 1 Indications: Heart failure, unspecified Rhythm: Sinus Technical Quality: Good FINDINGS Left Ventricle Normal left ventricular ejection fraction visually estimated at > 55%. No obvious regional wall motion abnormalities. Normal size left ventricle. Right Ventricle Normal right ventricular size and function. Right Atrium Normal right atrial size. Left Atrium Normal left atrial size. Mitral Valve Mild mitral annular calcification. Trace mitral regurgitation. Aortic Valve Structurally normal aortic valve. No aortic stenosis. No aortic regurgitation. Tricuspid Valve Tricuspid valve not well visualized, grossly normal. Trace tricuspid regurgitation. Pulmonic Valve Mild pulmonic regurgitation. Pericardium No pericardial effusion. Great Vessels Normal size aortic root. CONCLUSIONS Normal left ventricular ejection fraction visually estimated at > 55%. No obvious regional wall motion abnormalities. Mild mitral annular calcification. Trace mitral regurgitation. Trace tricuspid regurgitation. Malvin Moulton M.D. (Electronically Signed) Final Date: 27 January 2018 18:02 MEASUREMENTS (Male / Female) Normal Values 2D ECHO LVOT Diameter 2.0 cm Aortic Root Diameter 2.3 cm LA Systolic Diameter LX 3.5 cm 3.0 - 4.0 / 2.7 - 3.8 cm LA Volume 46.0 cm 18 - 58 / 22 - 52 cm Ascending Aorta Diameter 2.5 cm DOPPLER AV Peak Velocity 157.0 cm/s AV Peak Gradient 9.9 mmHg AV Mean Velocity 114.0 cm/s AV Mean Gradient 6.0 mmHg AV Velocity Time Integral 30.8 cm LVOT Peak Velocity 93.2 cm/s LVOT Peak Gradient 3.5 mmHg LVOT Mean Velocity 65.3 cm/s LVOT Mean Gradient 2.0 mmHg LVOT Velocity Time Integral 20.6 cm LVOT Stroke Volume 64.7 cm AV Area Cont Eq vti 2.1 cm AV Area Cont Eq pk 1.9 cm MV Peak Velocity 141.0 cm/s MV Peak Gradient 8.0 mmHg MV Mean Velocity 81.6 cm/s MV Mean Gradient 3.0 mmHg Mitral E Point Velocity 100.0 cm/s Mitral A Point Velocity 68.6 cm/s Mitral E to A Ratio 1.5 MV PHT Velocity 145.0 cm/s MV Deceleration [place] 851.0 cm/s MV Pressure Half Time 51.1 ms MV Area PHT 4.3 cm MV Deceleration Time 211.0 ms PV Peak Velocity 138.0 cm/s PV Peak Gradient 7.6 mmHg PV Mean Velocity 99.5 cm/s PV Mean Gradient 4.0 mmHg PV Velocity Time Integral 33.1 cm LV E' Lateral Velocity 13.3 cm/s Mitral E to LV E' Lateral Ratio 7.5 LV E' Septal Velocity 10.8 cm/s Mitral E to LV E' Septal Ratio 9.3
== END 2018-01-27 15:47 ==
LOC: ERH 21:33 → 2NB 01-26 02:37 → ERHI 01-26 02:37 → ENRESERV 01-26 10:48 → ENTRNSPT 01-26 11:40 → EDTRNSPT 01-26 11:50 → EDTRNSPTSTS 01-26 11:50 → 2NB 01-26 12:06 → CMPTRNSPT 01-26 12:13 → ENPENDDIS 01-27 09:57 → ENTRNSPT 01-27 15:39 → 2NB 01-27 15:47 → EDTRNSPTSTS 01-27 15:57 → CMPTRNSPT 01-27 16:02
PROVIDERS: Pediatrics; Preventive Medicine Addiction Medicine
DX: D50.9 Iron deficiency anemia, unspecified (principal); E66.9 Obesity, unspecified; Z87.442 Personal history of urinary calculi; E21.3 Hyperparathyroidism, unspecified; M79.89 Other specified soft tissue disorders; F32.9 Major depressive disorder, single episode, unspecified; F43.10 Post-traumatic stress disorder, unspecified; F41.9 Anxiety disorder, unspecified; R56.9 Unspecified convulsions; F17.200 Nicotine dependence, unspecified, uncomplicated; R60.9 Edema, unspecified; Z79.899 Other long term (current) drug therapy; M54.9 Dorsalgia, unspecified
CPT/HCPCS: 36415; 86920; 86922; 93005; 93010; 93306; 93970; G0378; J1200; P9016